=== PATIENT | female | born 1995 | race Caucasian/White ===

== ENCOUNTER 2019-08-26 06:35 | Outpatient (CLI) | payer OTHER ==
--- NOTE | 2019-08-26 09:18 | ULT ---
OB ULTRASOUND: HISTORY: Anatomy size and dates. FINDINGS: A single live intrauterine gestation is seen with measurements corresponding to an estimated gestatio nal age of 21 weeks 4 days and JHON of 12/31/2020. The estimated weight measures 437 g or 15 oz (32nd percentile by Hadlock criteria). measurements are as follows: BPD: 5.04 cm (21 weeks 2 days) HC: 18.91 cm (21 weeks 2 days) AC: 17.17 cm (22 weeks 1 day) FL: 3.52 cm (21 weeks 1 day) The heart rate measures 134 beats per minute. The placenta is posteriorly located without evide nce of placenta previa. WILMER measures 13.13 cm. Cervical length measures 4.6 cm. Three vessel cord, cord insertion, kidneys, bladder, stomach, four chamber heart, lateral ventr icles, cerebellum, spine, lips/nose and upper and lower extremities are visualized. No definite anomalies are seen. IMPRESSION: Single live intrauterine of 21 weeks' 4 days' estimated gestational age and estimated date of delivery at 01/02/2020. POS: KISHORE
== END 2019-08-26 06:36 | disposition home or self-care (01) ==
LOC: BICULT 06:35
PROVIDERS: ATTEND Family Medicine
DX: Z34.82 Encounter for supervision of other normal pregnancy, second trimester (principal); Z3A.21 21 weeks gestation of pregnancy
CPT/HCPCS: 76805